=== PATIENT | female | born 1950 | race Asian ===

== ENCOUNTER 2019-09-18 15:17 | Emergency (ER) | payer OTHER ==
[2019-09-18 15:33] VITALS: BP 173/84
== END 2019-09-18 18:32 | disposition home or self-care (01) ==
LOC: EDBD 15:17 → ER 15:17
DX: M54.2 Cervicalgia (principal); M62.838 Other muscle spasm; R51 Headache; E11.9 Type 2 diabetes mellitus without complications; E78.5 Hyperlipidemia, unspecified; I10 Essential (primary) hypertension; V43.62XA Car passenger injured in collision with other type car in traffic accident, initial encounter; Y93.89 Activity, other specified; Y92.488 Other paved roadways as the place of occurrence of the external cause; Y99.8 Other external cause status
CPT/HCPCS: 70450; 72125